=== PATIENT | male | born 1960 | race African-American/Black ===

== ENCOUNTER 2018-05-20 20:35 | Emergency (ER) | payer MEDICAID, OTHER ==
[~2018-05-20] VITALS: Ht 185.4 cm; Wt 88.0 kg
--- NOTE | 2018-05-20 20:42 | NUR ---
PT [id number] FROM [facility] C/O HIGH BP, PT AAOX4, RESPIRATIONS EVEN AND UNLABORED, NO SOB, PT IS ASYMPTOMATIC, DENIES ANY DIZZINESS, NO N/V, PT ON MONITOR, PENDIKER ARIAS
[2018-05-20] MEDS ORDERED: ENALAPRILAT DIHYD. (2.5MG/ML) 1.25 MG/ML VIAL IV ONE ×2 (20:55→21:00)
[2018-05-20 20:58] LABS: BASOPHILS % (AUTO) 0.9 % (0.0-2.0); EOSINOPHILS % (AUTO) 1.1 % (0.0-6.0); HEMATOCRIT 33 % (39-51); HEMOGLOBIN 10.8 g/dL (13.5-17.5); LYMPHOCYTES # (AUTO) 1.7 /CMM (0.8-4.8); LYMPHOCYTES % (AUTO) 42.3 % (20.0-44.0); MEAN CORPUSCULAR HGB CONC 33 g/dl (31.0-36.0); MEAN CORPUSCULAR VOLUME 89 fL (80-96); MONOCYTES # (AUTO) 0.4 /CMM (0.1-1.30); MONOCYTES % (AUTO) 10.2 % (2.0-12.0); NEUTROPHILS # (AUTO) 1.8 /CMM (1.8-8.9); NEUTROPHILS % (AUTO) 45.5 % (43.0-81.0); PLATELET COUNT (AUTO) 185 /CMM (150-450); RED BLOOD CELL COUNT(AUTO) 3.67 MIL/uL (4.5-6.0)
[2018-05-20 21:06] LABS: CALCIUM, SERUM 8.3 mg/dL (8.5-10.1); CREATININE 2.4 mg/dL (0.6-1.3); POTASSIUM 4.2 mmol/L (3.5-5.1)
[2018-05-20] MEDS ORDERED: CLONIDINE HCL 0.1 MG TABLET ONE (21:23)
--- NOTE | 2018-05-20 21:28 | NUR ---
GIVEN CLONIDINE 0.[address] PAIGE'S VERBAL ORDER
[2018-05-20] MEDS ORDERED: CLONIDINE HCL 0.1 MG TABLET PO ONE (21:30)
[2018-05-20] MEDS ORDERED: AMLODIPINE BESYLATE 5 MG TABLET PO ONE (22:00)
[2018-05-20] MEDS ORDERED: AMLODIPINE BESYLATE 5 MG TABLET ONE (22:14)
--- NOTE | 2018-05-20 22:53 | NUR ---
Jace escudero in [facility] - 05/20/18 at 2326 by RHDAYANOMEN RONDA CARMONA [id number]
[2018-05-20] MEDS ORDERED: hydrALAZINE HCL IV 20 MG VIAL ONE (23:00)
[2018-05-20] MEDS ORDERED: hydrALAZINE HCL IV 20 MG VIAL IV ONE (23:00)
[2018-05-21] MEDS ORDERED: hydrALAZINE HCL IV 20 MG VIAL ONE (00:05)
--- NOTE | 2018-05-21 00:15 | NUR ---
REMEDICATED ORDERED AND STILL ON MONITOR. WATCHING TV. DENIES HEADACHE/DIZZINESS/N/V/CP/SOB.
[2018-05-21] MEDS ORDERED: hydrALAZINE HCL IV 20 MG VIAL IV ONE (00:30)
--- NOTE | 2018-05-21 00:39 | NUR ---
GIVEN WARM BLANKET AND JUICE. STILL DENIES ANY SX'S AT THIS TIME.
--- NOTE | 2018-05-21 00:55 | NUR ---
CALLED [facility] AND SPOKE TO [employer] AND [employer] STACEY. STATES "IT'S OK TO SEND THE PT BACK".
--- NOTE | 2018-05-21 01:51 | NUR ---
STILL AWAITING [facility]. PT AWARE. NAD NOTED. RESP EVEN AND UNLABORED.
[2018-05-21] MEDS ORDERED: CLONIDINE HCL 0.1 MG TABLET ONE (02:09)
--- NOTE | 2018-05-21 02:19 | NUR ---
REPORT GIVEN TO [facility] STAFF. TO BE TRANSPORTED TO [facility].
--- NOTE | 2018-05-21 02:22 | NUR ---
IV removed. Catheter intact and site benign. Pressure and 4x4 applied to site. No bleeding noted.
[2018-05-21 02:23] VITALS: BP 169/99
--- NOTE | 2018-05-21 02:24 | NUR ---
PT REMAINS ASYMPTOMATIC.
[2018-05-21] MEDS ORDERED: CLONIDINE HCL 0.1 MG TABLET PO ONE (02:30)
== END 2018-05-21 02:24 | disposition home or self-care (01) ==
LOC: ER 20:38
DX: I10 Essential (primary) hypertension (principal); F17.200 Nicotine dependence, unspecified, uncomplicated; F20.9 Schizophrenia, unspecified; F31.9 Bipolar disorder, unspecified; Z88.1 Allergy status to other antibiotic agents; Z88.6 Allergy status to analgesic agent; Z60.2 Problems related to living alone
CPT/HCPCS: 36415; 80048-TC; 85025-TC; J0360; J3490